=== PATIENT | female | born 1995 | race Two or more races ===

== ENCOUNTER 2021-07-21 10:52 | Emergency (ER) | payer MEDICAID ==
[~2021-07-21] VITALS: Ht 170.2 cm; Wt 87.1 kg
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
--- NOTE | 2021-07-21 11:08 | NUR ---
called social sciences chair and spoke to Lisa and said that they will se and talk to the patient.
[2021-07-21] MEDS ORDERED: ACETAMINOPHEN ES 500 MG TABLET PO ONE (11:30)
[2021-07-21] MEDS ORDERED: ACETAMINOPHEN ES 500 MG TABLET ONE (11:37)
--- NOTE | 2021-07-21 12:02 | NUR ---
social media job titles at bedside for eval.
--- NOTE | 2021-07-21 12:30 | NUR ---
Patient discharged to home in stable condition. Written and verbal after care instructions given. Patient verbalizes understanding of instruction.
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
[2021-07-21 12:58] VITALS: BP 121/70
== END 2021-07-21 12:58 | disposition home or self-care (01) ==
LOC: ER 10:52
DX: O9A.213 Injury, poisoning and certain other consequences of external causes complicating pregnancy, third trimester (principal); S09.90XA Unspecified injury of head, initial encounter; Z3A.36 36 weeks gestation of pregnancy; Y04.0XXA Assault by unarmed brawl or fight, initial encounter; Y93.89 Activity, other specified; Y92.89 Other specified places as the place of occurrence of the external cause; Y99.8 Other external cause status